=== PATIENT | male | born 1980 | race Caucasian/White ===

== ENCOUNTER 2016-10-19 02:08 | Emergency (ER) | payer OTHER ==
--- NOTE | ~2016-10-19 | CR133 ---
[facility] A Service of [facility] & [facility] RADIOLOGY TEXT RESULTS PATIENT: RENÉ HAMMONDS LOCATION: [facility] : 76 UNIT #: [id number] AGE: [address]: Tc Horner MD SEX: M ORDER DR: [id number] [facility] [address] [place], [place] [address] [id number] MR#: [id number] Acc #: [id number] NAME: RENÉ HAMMONDS : 1980 SEX: M STUDY DATE/TIME: 10/19/2016 02:27 UNIT: [facility] ROOM: STUDY DESCRIPTION: CR Forearm 2 View Rt Attending Physician: Tc Horner M.D. Ordering Physician: Tc Horner M.D. MEDICAL IMAGING REPORT This report is preliminary unless electronic signature is present EXAM right forearm 10/19/2016 02:27 INDICATION Pain, redness and swelling that started yesterday after injecting meth. FINDINGS 2 views of the forearm were obtained. There is soft tissue swelling present, but no soft tissue gas or radiopaque foreign bodies are seen. The bones are normal. IMPRESSION Soft tissue swelling without soft tissue gas or radiopaque foreign bodies. The bones are normal. Dictated by... Butch Andrade Jr., M.D. THIS IS AN ELECTRONICALLY VERIFIED REPORT Butch Andrade Jr., M.D. at 10/20/2016 6:40 AM COLEMAN/darren TD: 10/19/2016 12:51 JOB #: [id number] MEDICAL IMAGING REPORT COPY
--- NOTE | ~2016-10-19 | CR142 ---
[facility] A Service of [facility] & [facility] RADIOLOGY TEXT RESULTS PATIENT: RENÉ HAMMONDS LOCATION: [facility] : 76 UNIT #: [id number] AGE: [address]: Tc Horner MD SEX: M ORDER DR: [id number] [facility] [address] [place], [place] [address] [id number] MR#: [id number] Acc #: [id number] NAME: RENÉ HAMMONDS : 1980 SEX: M STUDY DATE/TIME: 10/19/2016 02:25 UNIT: [facility] ROOM: STUDY DESCRIPTION: CR Hand Min 3 Views Rt Attending Physician: Tc Horner M.D. Ordering Physician: Tc Horner M.D. MEDICAL IMAGING REPORT This report is preliminary unless electronic signature is present EXAM Right hand, 10/19 at 02:25. INDICATIONS Redness and swelling and pain after injecting meth in the hand yesterday. FINDINGS 3 views of the right hand are compared with apparent incorrectly labeled views of the right hand from 03/23/2016. There is diffuse soft tissue swelling in the hand, but no soft tissue gas is seen. There is an old boxer fracture with volar angulation. There is old traumatic amputation of the tip of the third digit. IMPRESSION Diffuse soft tissue swelling without soft tissue gas or radiopaque foreign body. No acute osseous findings. Dictated by... Butch Andrade Jr., M.D. THIS IS AN ELECTRONICALLY VERIFIED REPORT Butch Andrade Jr., M.D. at 10/20/2016 6:40 AM COLEMAN/ana TD: 10/19/2016 12:47 JOB #: [id number] MEDICAL IMAGING REPORT COPY
[~2016-10-19 02:08] MED LIST: HYDROCODON-ACE1 EAC9 PO; NAPROSYN500 MG PO; NO MEDICATIONS; PENICILLIN V P500 MG PO
[2016-10-19 02:31] LABS: BASOPHIL% 0.2 % (0-2.5); EOSINOPHIL% 0.2 % (0.0-7.0); HEMATOCRIT 37.3 % (38.0-50.0); HEMOGLOBIN 12.4 gm/dL (13.0-16.0); LYMPHOCYTE# 0.8 X10e3 (1.0-3.5); LYMPHOCYTE% 5.7 % (17.0-45.0); MEAN CELL VOLUME 92.7 FL (83-96); MEAN CORPUSCULAR HEMOGLOBIN 30.8 PG (28-34); MEAN CORPUSCULAR HGB CONC 33.2 g/dL (30-36); MEAN PLATELET VOLUME 8.5 FL (6.5-11.5); MONOCYTE% 7.7 % (3.0-12.0); NEUTROPHIL# 11.7 X10e3 (1.5-7.1); NEUTROPHIL% 86.2 % (40-75); PLATELET COUNT 232 X10e3 (140-420); RED BLOOD COUNT 4.03 X10e (3.90-5.60); RED CELL DISTRIBUTION WIDTH 12.9 % (11.0-15.5); WHITE BLOOD COUNT 13.6 X10e3 (4.0-10.5)
[2016-10-19 02:32] LABS: DIFF IND NO
[2016-10-19 03:06] LABS: ALBUMIN SERUM 3.5 g/dL (3.5-5.0); ALKALINE PHOSPHATASE 66 U/L (32-92); ALT (SGPT) 25 U/L (10-40); AST (SGOT) 31 U/L (10-42); BILIRUBIN, DIRECT 0.1 mg/dL (0.0-0.2); BILIRUBIN,INDIRECT 0.6 mg/dL (0.0-0.9); BILIRUBIN,TOTAL 0.7 mg/dL (0.2-2.0); BLOOD UREA NITROGEN 11 mg/dL (9-23); BUN/CREATININE RATIO 15.71; CALCIUM SERUM 8.4 mg/dL (8.4-10.2); CARBON DIOXIDE 28 mmol/L (22-31); CHLORIDE 96 mmol/L (100-111); CREATININE SERUM 0.7 mg/dL (0.6-1.4); GLOM FILT RATE Estimated ABOVE60 mL/min (>60); GLUCOSE FASTING 97 mg/dL (70-110); POTASSIUM 3.8 mmol/L (3.5-5.1); PROTEIN TOTAL SERUM 6.8 g/dL (6.0-8.3); SODIUM 130 mmol/L (135-145)
[2016-10-19 05:35] LABS: AMPHETAMINE POS (NEG); BARBITURATES NEG (NEG); BENZODIAZEPINES NEG (NEG); COCAINE NEG (NEG); MARIJUANA NEG (NEG); OPIATES POS (NEG); TRICYCLIC ANTIDEPRESSANTS NEG (NEG); U METHADONE NEG (NEG)
== END 2016-10-19 05:46 ==
LOC: CED 02:08
PROVIDERS: Emergency Medicine
DX: L03.113 Cellulitis of right upper limb (principal); F17.200 Nicotine dependence, unspecified, uncomplicated
CPT/HCPCS: 36415; 73090; 73130; 80048; 80076; 80307; 83605; 85025; 87040; 96361; 96374; 99285; J1885; J3370